=== PATIENT | female | born 1990 | race Caucasian/White ===

== ENCOUNTER 2019-07-19 10:27 | Emergency (ER) | payer MEDICARE, MEDICAID ==
[2019-07-19 10:44] VITALS: BP 125/82
--- NOTE | 2019-07-19 11:13 | UC ---
Lower Extremity/Ankle HPI - HPI Summary HPI Summary: 29-year-old female presents with complaints of right foot pain. States approximately one half weeks ago she noticed onset of right heel and plantar foot pain upon waking and standing on her foot. States the pain is continuous to be worse first thing in the morning and does improve some throughout the day. Also notices pain is worse with prolonged standing or ambulation. No known injury. Denies erythema, edema, numbness, or tingling. - History of Current Complaint Chief Complaint: UCLowerExtremity Stated Complaint: RT FOOT COMPLAINT Time Seen by Provider: 07/19/19 10:48 Hx Obtained From: Patient Hx Last Menstrual Period: no menses x6 years d/t ablation Pain Intensity: 6 - Allergies/Home Medications Allergies/Adverse Reactions: Allergies Allergy/AdvReac Type Severity Reaction Status Date / Time acetaminophen [From Vicodin] Allergy Itching Verified 07/19/19 10:36 hydrocodone [From Vicodin] Allergy Itching Verified 07/19/19 10:36 Home Medications: Home Medications Fludrocortisone Acetate TAB* [Florinef TAB*] 1 tab BID 07/19/19 [History Confirmed 07/19/19] Midodrine 10 mg PO TID 07/19/19 [History Confirmed 07/19/19] Sertraline* [Zoloft*] 1 tab QAM 07/19/19 [History Confirmed 07/19/19] raNITIdine HCl [Acid [employer] Internship] 1 tab QAM 07/19/19 [History Confirmed 07/19/19] PMH/Surg Hx/FS Hx/Imm Hx Cardiovascular History: Other - orthostatic hypotension GI/ History: Gastroesophageal Reflux Psychological History: Depression - Surgical History Surgical History: Yes Surgery Procedure, Year, and Place: esure/leep procedure 05/12/13. MARCH 2014- Uterine ablation - Social History Alcohol Use: Occasionally Substance Use Type: None Smoking Status (MU): Current Every Day Smoker Type: Cigarettes Amount Used/How Often: 1/2 PPD Length of Time of Smoking/Using Tobacco: 5 YRS Have You Smoked in the Last Year: Yes Review of Systems All Other Systems Reviewed And Are Negative: Yes Constitutional: Negative: Fever, Chills Skin: Negative: Rash, Bruising Respiratory: Positive: Negative Cardiovascular: Positive: Negative Gastrointestinal: Positive: Negative Genitourinary: Positive: Negative Musculoskeletal: Positive: Other: - See HPI Neurological: Positive: Negative Is Patient Immunocompromised?: No Physical Exam - Summary Physical Exam Summary: GENERAL APPEARANCE: Well developed, well nourished, alert and cooperative, and appears to be in no acute distress. CARDIAC: Normal S1 and S2. No S3, S4 or murmurs. Rhythm is regular. There is no peripheral edema, cyanosis or pallor. Extremities are warm and well perfused. Capillary refill is less than 2 seconds. Peripheral pulses intact. LUNGS: Clear to auscultation without rales, rhonchi, wheezing or diminished breath sounds. ABDOMEN: Positive bowel sounds. Soft, nondistended, nontender. No guarding or rebound. No masses or hepatosplenomegally. MUSKULOSKELETAL: ROM intact to all extremities. No joint erythema or tenderness. Normal muscular development. Limping gait. EXTREMITIES: Tenderness along the plantar fascia of the right foot. No gross deformity, ecchymosis, or erythema noted. Circulation and sensation intact. SKIN: Skin normal color, texture and turgor with no lesions or eruptions. Triage Information Reviewed: Yes Vital Signs: Initial Vital Signs Temp 98.4 F 07/19/19 10:38 Pulse 69 07/19/19 10:38 Resp 18 07/19/19 10:38 BP 125/82 07/19/19 10:38 Pulse Ox 98 07/19/19 10:38 Vital Signs Reviewed: Yes Lower Extremity Course/Dx - Course Course Of Treatment: 29-year-old female presents with complaints of right foot pain. States approximately one half weeks ago she noticed onset of right heel and plantar foot pain upon waking and standing on her foot. States the pain is continuous to be worse first thing in the morning and does improve some throughout the day. Also notices pain is worse with prolonged standing or ambulation. No known injury. Denies erythema, edema, numbness, or tingling. Afebrile. Vital signs stable. On exam patient had tenderness along the plantar fascia of the right foot without gross deformity, ecchymosis, or erythema. Circulation and sensation were intact. The patient's history and exam are consistent with a plantar fasciitis therefore radiographic studies were deferred at this time. Recommending conservative treatment for right plantar fasciitis including NSAIDs , RICE, supportive shoes with appropriate arch support, and stretching exercises. She is to follow-up with orthopedic surgery in 7 days if symptoms are not improving. Anticipatory guidance and warning symptoms were reviewed with the patient. Verbalizes understanding and agrees with plan of care. - Differential Dx/Diagnosis Differential Diagnosis/HQI/PQRI: Sprain, Tendonitis, Tenosynovitis Provider Diagnosis: Plantar fasciitis of right foot Discharge ED - Sign-Out/Discharge Documenting (check all that apply): Patient Departure All imaging exams completed and their final reports reviewed: No Studies - Discharge Plan Condition: Stable Disposition: HOME Prescriptions: Naproxen [Naproxen 500 mg tab] 500 mg PO Q12HR #30 tablet Patient Education Materials: Plantar Fasciitis Exercises (GEN), Plantar Fasciitis (ED) Referrals: Kizzy Sauceda MD [Primary Care Provider] - Carlos Ku MD [Medical Doctor] - 7 Days Additional Instructions: Your history and exam are consistent with a condition called plantar fasciitis. Rest the foot as much as possible. Apply ice to the affected area for 15-20 minutes at least 4 times a day to help with the pain and swelling. It is important that you wear well-fitting shoes and it is recommended that you use an arch support in the shoe to help provide adequate support. Take naproxen 500 mg 1 tab every 12 hours with food for the next 5-7 days then may take every 12 hours as needed for pain. Follow up with orthopedic surgery in 7 days if symptoms do not improve. Call for appointment. Seek immediate medical attention if you have severe pain not managed with pain medication, you are unable to walk or bear any weight, develop numbness or tingling in the foot or toes, or have any worsening of symptoms. - Billing Disposition and Condition Condition: STABLE Disposition: Home
== END 2019-07-19 11:24 | disposition home or self-care (01) ==
LOC: UCCORT 10:27
DX: M72.2 Plantar fascial fibromatosis (principal); I95.1 Orthostatic hypotension; K21.9 Gastro-esophageal reflux disease without esophagitis; F32.9 Major depressive disorder, single episode, unspecified; F17.210 Nicotine dependence, cigarettes, uncomplicated
CPT/HCPCS: 99212; G0463